=== PATIENT | male | born 1970 | race Caucasian/White ===

== ENCOUNTER 2021-11-10 23:06 | Emergency (ER) | payer BC ==
[2021-11-10] MEDS ORDERED: Ondansetron 4 MG Tab.DIS PO ONE (23:25)
[2021-11-10] MEDS ORDERED: Meclizine 25 MG Tab PO ONE (23:26)
--- NOTE | 2021-11-10 23:27 | EDM.PDOC ---
ED HPI GENERAL MEDICAL PROBLEM - General Chief Complaint: General Stated Complaint: VERTIGO Time Seen by Provider: 11/10/21 23:15 - History of Present Illness INITIAL COMMENTS - FREE TEXT/NARRATIVE: History of present illness: [] Patient began to have vertigo 1 hour prior to arrival. When he turns his head he has rotational vertigo nausea vomiting and diaphoresis. He is so dizzy he cannot walk. Patient's been vomiting. When he moves his head it is worse. Patient is a non-smoker. He is not diabetic. He is not treated for blood pressure or cholesterol. Patient is extremely low risk for stroke but also has no upper respiratory symptoms fever or chills. Review of systems: As per history of present illness and below otherwise all systems reviewed and negative. Past medical history: As per history of present illness and as reviewed below otherwise noncontributory. Surgical history: As per history of present illness and as reviewed below otherwise noncontributory. Social history: No reported history of drug or alcohol abuse. Family history: As per history of present illness and as reviewed below otherwise noncontributory. Physical exam: Constitutional - well developed, well-nourished and in no acute distress HEENT - normocephalic, no evidence of trauma - external nose and mouth normal - no mass in neck and no JVD - mucosae moist EYES -when patient symptomatic he has a horizontal nystagmus both eyes. Full EOM, PERRL, no icterus - no evidence of inflammation, injection, or drainage Respiratory - no respiratory distress, equal bilateral expansion, lungs clear to auscultation and no abnormal lung sounds Cardiovascular - Regular Rhythm with S1 and S2 appreciated and no murmur, gallop or rub. GI - abdomen soft without distension or organomegaly - normal bowel sounds - no guard or rebound Musculoskeletal no gross deformity of long bones or joints - no tenderness, swelling or edema Neurologic - Alert and oriented times four - CN II-XII grossly intact - motor sensory and coordination symmetrically normal Psychiatric - appropriate mood and affect with normal thought content Hematologic - No petechiae or purpura - mucosa appropriate color and sclera not pale - normal nail bed color and refill Integument - no rash or evidence of trauma - normal turgor Diagnostics: [] Therapeutics: [] Impression: [] Plan: [] Definitive disposition and diagnosis as appropriate pending reevaluation and review of above. - Related Data Allergies Allergy/AdvReac Type Severity Reaction Status Date / Time No Known Allergies Allergy Verified 11/10/21 23:14 Home Meds: Home Meds Meclizine [Antivert] 25 mg PO TID PRN #12 tab 11/11/21 [Rx] Ondansetron [Zofran ODT] 4 mg PO Q6H PRN #10 tab.dis 11/11/21 [Rx] Past Medical History - Past Surgical History GI Surgical History: Reports: Hernia, Inguinal Social & Family History - Tobacco Use Tobacco Use Status *Q: Never Tobacco User - Recreational Drug Use Recreational Drug Use: No ED ROS GENERAL - Review of Systems Review Of Systems: Comprehensive ROS is negative, except as noted in HPI. ED EXAM, GENERAL - Physical Exam Exam: See Below Free Text/Narrative:: My physical exam is in the HPI Course - Vital Signs Last Recorded V/S: Last Vital Signs Temp 35.7 C L 11/10/21 23:14 Pulse 71 11/11/21 02:45 Resp 14 11/11/21 02:45 BP 144/86 H 11/11/21 02:45 Pulse Ox 98 11/11/21 02:45 - Orders/Labs/Meds Orders: Active Orders 24 hr Category Date Time Status Sodium Chloride 0.9% [Saline Flush] Med 11/11/21 02:00 Active 10 ml FLUSH ASDIRECTED PRN Sodium Chloride 0.9% [Saline Flush] Med 11/11/21 02:00 Active 2.5 ml FLUSH ASDIRECTED PRN Saline Lock Insert [OM.PC] Stat Oth 11/11/21 02:00 Ordered Medication Orders Sodium Chloride (Sodium Chloride 0.9% 10 Ml Syringe) 10 ml FLUSH ASDIRECTED PRN PRN Reason: Keep Vein Open Sodium Chloride (Sodium Chloride 0.9% 2.5 Ml Syringe) 2.5 ml FLUSH ASDIRECTED PRN PRN Reason: Keep Vein Open Labs: Laboratory Tests 11/11/21 11/11/21 Range/Units 02:10 02:10 WBC 13.60 H (4.0-11.0) K/uL RBC 4.85 (4.50-5.90) M/uL Hgb 15.0 (13.0-17.0) g/dL Hct 44.6 (38.0-50.0) % MCV 92.0 (80.0-98.0) fL MCH 30.9 (27.0-32.0) pg MCHC 33.6 (31.0-37.0) g/dL RDW Std Deviation 42.5 (28.0-62.0) fl RDW Coeff of Willian 13 (11.0-15.0) % Plt Count 235 (150-400) K/uL MPV 10.30 (7.40-12.00) fL Neut % (Auto) 86.5 H (48.0-80.0) % Lymph % (Auto) 8.0 L (16.0-40.0) % [place] % (Auto) 5.3 (0.0-15.0) % Eos % (Auto) 0.1 (0.0-7.0) % Baso % (Auto) 0.1 (0.0-1.5) % Neut # (Auto) 11.8 H (1.4-5.7) K/uL Lymph # (Auto) 1.1 (0.6-2.4) K/uL [place] # (Auto) 0.7 (0.0-0.8) K/uL Eos # (Auto) 0.0 (0.0-0.7) K/uL Baso # (Auto) 0.0 (0.0-0.1) K/uL Nucleated RBC % 0.1 /100WBC Nucleated RBCs # 0 K/uL Sodium 140 (136-148) mmol/L Potassium 4.0 (3.5-5.1) mmol/L Chloride 102 (98-107) mmol/L Carbon Dioxide 30.1 (21.0-32.0) mmol/L BUN 16 (7.0-18.0) mg/dL Creatinine 1.0 (0.8-1.3) mg/dL Est Cr Clr Drug Dosing 82.65 mL/min Estimated GFR (MDRD) > 60.0 ml/min Glucose 132 H (74-106) mg/dL Calcium 9.3 (8.5-10.1) mg/dL Meds: Medications Generic Name Dose Route Start Last Admin Trade Name Freq PRN Reason Stop Dose Admin Sodium Chloride 10 ml 11/11/21 02:00 Sodium Chloride 0.9% 10 Ml Syringe FLUSH ASDIRECTED PRN Keep Vein Open Sodium Chloride 2.5 ml 11/11/21 02:00 Sodium Chloride 0.9% 2.5 Ml Syringe FLUSH ASDIRECTED PRN Keep Vein Open Discontinued Medications Generic Name Dose Route Start Last Admin Trade Name Blayne PRN Reason Stop Dose Admin Diphenhydramine HCl 25 mg 11/11/21 02:01 11/11/21 02:25 Diphenhydramine 50 Mg/Ml Sdv IVPUSH 11/11/21 02:02 25 mg ONETIME ONE Administration Sodium Chloride 1,000 mls @ 1,000 mls/hr 11/11/21 02:01 11/11/21 02:24 Normal Saline IV 11/11/21 03:00 1,000 mls/hr .Bolus ONE Administration Meclizine HCl 25 mg 11/10/21 23:26 11/11/21 00:08 Meclizine 25 Mg Tab PO 11/10/21 23:27 25 mg ONETIME ONE Administration Meclizine HCl 25 mg 11/11/21 02:57 11/11/21 03:02 Meclizine 25 Mg Tab PO 11/11/21 02:58 25 mg ONETIME ONE Administration Ondansetron HCl 4 mg 11/10/21 23:25 11/10/21 23:32 Ondansetron 4 Mg Tab.Dis PO 11/10/21 23:26 4 mg ONETIME ONE Administration Ondansetron HCl Confirm 11/10/21 23:28 11/10/21 23:34 Ondansetron 4 Mg Tab.Dis Administered 11/10/21 23:29 Not Given Dose 4 mg .ROUTE .STK-MED ONE Ondansetron HCl 4 mg 11/11/21 02:24 11/11/21 02:28 Ondansetron 4 Mg/2 Ml Sdv IVPUSH 11/11/21 02:25 4 mg ONETIME ONE Administration - Re-Assessments/Exams Free Text/Narrative Re-Assessment/Exam: 11/11/21 02:00 Able to sit up without dizziness and feeling like he wouldn't be able to walk. He remembers he had a brief episode of dizziness a few days ago during a curling match. 11/11/21 02:05 11/11/21 02:38 CT unremarkable. Labs show elevation of white count otherwise no acute abnormalities. This could be viral infection or stress. Free Text/Narrative Re-Assessment/Exam: 11/11/21 02:58 Patient was dizzy when he tried to sit up and get up. Modified Christophe maneuver attempted and the patient did not get very much vertigo at all when repositioned. This makes it unlikely will actually get a good response. 11/11/21 03:18 Improved to the point where he feels he can safely go home and go to bed in a hotel and order that the prescriptions from [facility] tomorrow. Departure - Departure Time of Disposition: 03:18 Disposition: Home, Self-Care 01 Condition: Good Clinical Impression: Vertigo - Discharge Information Prescriptions: Meclizine [Antivert] 25 mg PO TID PRN #12 tab PRN Reason: Dizziness Ondansetron [Zofran ODT] 4 mg PO Q6H PRN #10 tab.dis PRN Reason: Nausea/Vomiting Instructions: Vertigo, [id number] Referrals: PCP,None [Primary Care Provider] - Forms: ED Department Discharge Additional Instructions: Your prescriptions went to [facility]. They are open from 10/28/1970. [facility] [address] [place] [address] [place] [id number] The following information is given to patients seen in the emergency department who are being discharged to home. This information is to outline your options for follow-up care. We provide all patients seen in our emergency department with a follow-up referral. The need for follow-up, as well as the timing and circumstances, are variable depending upon the specifics of your emergency department visit. If you don't have a primary care physician on staff, we will provide you with a referral. We always advise you to contact your personal physician following an emergency department visit to inform them of the circumstance of the visit and for follow-up with them and/or the need for any referrals to a consulting specialist. The emergency department will also refer you to a specialist when appropriate. This referral assures that you have the opportunity for follow-up care with a specialist. All of these measure are taken in an effort to provide you with optimal care, which includes your follow-up. Under all circumstances we always encourage you to contact your private physician who remains a resource for coordinating your care. When calling for follow-up care, please make the office aware that this follow-up is from your recent emergency room visit. If for any reason you are refused follow-up, please contact the [facility] Emergency Department at and asked to speak to the emergency department charge nurse. Sepsis Event Note (ED) - Evaluation Sepsis Screening Result: No Definite Risk - Focused Exam Vital Signs: Vital Signs Temp Pulse Resp BP Pulse Ox 11/11/21 02:45 71 14 144/86 H 98 11/11/21 00:59 61 16 151/68 H 96 11/10/21 23:14 35.7 C L 68 17 140/80 100 - My Orders Last 24 Hours: My Active Orders 11/11/21 02:00 Sodium Chloride 0.9% [Saline Flush] 10 ml FLUSH ASDIRECTED PRN Sodium Chloride 0.9% [Saline Flush] 2.5 ml FLUSH ASDIRECTED PRN Saline Lock Insert [OM.PC] Stat - Assessment/Plan Last 24 Hours: My Active Orders 11/11/21 02:00 Sodium Chloride 0.9% [Saline Flush] 10 ml FLUSH ASDIRECTED PRN Sodium Chloride 0.9% [Saline Flush] 2.5 ml FLUSH ASDIRECTED PRN Saline Lock Insert [OM.PC] Stat
[2021-11-10] MEDS ORDERED: Ondansetron 4 MG Tab.DIS ONE (23:28)
[2021-11-11] MEDS ORDERED: Sodium Chloride 0.9% 2.5 ML Syringe FLUSH PRN (02:00)
[2021-11-11] MEDS ORDERED: Sodium Chloride 0.9% 10 ML Syringe FLUSH PRN (02:00)
[2021-11-11] MEDS ORDERED: Sodium Chloride 0.9% 1,000 ML IV ONE (02:01)
[2021-11-11] MEDS ORDERED: diphenhydrAMINE 50 MG/ML SDV IVPUSH ONE (02:01)
[2021-11-11] MEDS ORDERED: Ondansetron 4 MG/2 ML SDV IVPUSH ONE (02:24)
[2021-11-11 02:26] LABS: BLOOD UREA NITROGEN,BUN 16 mg/dL (7.0-18.0); CARBON DIOXIDE,CO2 30.1 mmol/L (21.0-32.0); CHLORIDE,CL 102 mmol/L (98-107); GLUCOSE RANDOM 132 mg/dL (74-106); SODIUM,NA 140 mmol/L (136-148)
--- NOTE | 2021-11-11 02:28 | CT ---
INDICATION: Dizziness TECHNIQUE: CT Head without i.v. contrast. Coronal and sagittal reformats were obtained. COMPARISON: None FINDINGS: CSF space: The ventricles are normal for age. Brain: No evidence of mass, acute infarction or hemorrhage is seen. No mass-effect or midline shift is seen. The brain parenchyma is otherwise normal in appearance with preservation of the lujan-white matter junction. Calvarium: The visualized paranasal sinuses are well aerated. The mastoid air cells are clear. The visualized orbits are grossly unremarkable. The calvarium is unremarkable in appearance with no fractures identified. IMPRESSION: 1. No evidence of acute infarction, intracranial hemorrhage, or mass-effect seen. Please note that all CT scans at this facility use dose modulation, iterative reconstruction, and/or weight-based dosing when appropriate to reduce radiation dose to as low as reasonably achievable. Dictated by: James West MD @ 11/11/2021 02:26:09 (Electronically Signed)
[2021-11-11] MEDS ORDERED: Meclizine 25 MG Tab PO ONE (02:57)
== END 2021-11-11 03:35 | disposition home or self-care (01) ==
LOC: MW.ED 23:06
DX: R42 Dizziness and giddiness (principal)
CPT/HCPCS: 36415; 70450; 80048; 85025; 96374; 96375; 99284; A9270; J1200; J2405; J7030